=== PATIENT | male | born 1980 | race Caucasian/White ===

== ENCOUNTER 2016-09-07 12:35 | Inpatient (IN) | payer OTHER ==
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
[2016-09-07 18:20] VITALS: BMI 25.8
[2016-09-07] MEDS ORDERED: guaiFENesin/D-METHORPHAN HB 10 ML UNIT-DOSE CUPS PO PRN (18:24)
[2016-09-07] MEDS ORDERED: IBUPROFEN 400 MG TABLET (FP) PO PRN (18:24)
[2016-09-07] MEDS ORDERED: ACETAMINOPHEN 325 MG TABLET (FP) PO PRN (18:24)
[2016-09-07] MEDS ORDERED: MAGNESIUM HYDROX 2400MG/30ML ORAL SUSPENSION 30 ML CUP PO PRN (18:24)
[2016-09-07] MEDS ORDERED: MAG HYDROX/AL HYDROX/SIMETH 30 ML UNIT-DOSE CUP PO PRN (18:24)
[2016-09-07] MEDS ORDERED: MENTHOL/PHENOL 1 EACH UD MM PRN (18:24)
[2016-09-07] MEDS ORDERED: LOPERAMIDE HCL 2 MG CAPSULE PO PRN (18:24)
[2016-09-07] MEDS ORDERED: NICOTINE POLACRILEX 2 MG GUM BC PRN (18:24)
[2016-09-07] MEDS ORDERED: P-EPHED 60MG/TRIPROLIDI 2.5MG TABLET PO PRN (18:24)
[2016-09-07] MEDS ORDERED: chlordiazePOXIDE HCL 25 MG CAPSULE PO PRN (18:24)
[2016-09-07] MEDS ORDERED: MAGNESIUM CITRATE 300 ML BOTTLE PO PRN (18:24)
[2016-09-07] MEDS: chlordiazePOXIDE HCL 25 MG CAPSULE PO SCH (22:14)
[2016-09-07] MEDS: THIAMINE HCL 100 MG TABLET (FP) PO SCH (22:14)
[2016-09-07 23:18] LABS: URINE APPEARANCE CLEAR; URINE BILIRUBIN NEGATIVE (NEGATIVE); URINE BLOOD NEGATIVE (NEGATIVE); URINE COLOR YELLOW; URINE GLUCOSE (UA) NEGATIVE (NEGATIVE); URINE KETONE NEGATIVE (NEGATIVE); URINE LEUK ESTERASE NEGATIVE (NEGATIVE); URINE NITRITE NEGATIVE (NEGATIVE); URINE PROTEIN NEGATIVE (NEGATIVE); URINE UROBILINOGEN NEGATIVE E.U./dl (0.2-1.0)
[2016-09-08] MEDS: chlordiazePOXIDE HCL 25 MG CAPSULE PO SCH ×4 (06:15→22:12)
[2016-09-08 09:58] LABS: MCH 26.6 pg (25.7-33.7); MCHC 32.9 g/dl (32.0-35.9); MEAN CELL VOLUME 80.8 fl (80-96); MEAN PLT VOLUME 8.7 fl (7.5-11.1); PLATELET COUNT 243 K/MM3 (134-434); RDW 14.1 % (11.9-15.9); WHITE BLOOD COUNT 10.5 K/mm3 (4.0-10.0)
[2016-09-08] MEDS ORDERED: METHADONE HCL 40 MG DISPERSABLE TABLET PO SCH (10:00)
[2016-09-08] MEDS ORDERED: METHADONE HCL 10 MG TABLET ONE (10:06)
[2016-09-08] MEDS ORDERED: METHADONE HCL 40 MG DISPERSABLE TABLET ONE (10:06)
[2016-09-08] MEDS: METHADONE 80 MG, METHADONE 10 MG PO SCH (10:18)
[2016-09-08] MEDS: PRENATAL VITAMINS W/ FOLIC ACID TABLET (FP) PO SCH (10:18)
[2016-09-08] MEDS: NICOTINE 14 MG/24 HOURS TOPICAL PATCH TD SCH (10:19)
[2016-09-08 10:42] LABS: ALBUMIN 3.6 g/dl (3.4-5.0); ALK PHOS 88 U/L (45-117); ANION GAP 9 (8-16); BILIRUBIN,TOTAL 0.4 mg/dL (0.2-1.0); CALCIUM 8.2 mg/dL (8.5-10.1); CO2 27 mmol/L (21-32); CREATININE 0.9 mg/dL (0.7-1.3); GLUCOSE,RANDOM 75 mg/dL (74-106); SGOT/AST 25 U/L (15-37); SGPT/ALT 32 U/L (12-78); TOT PROT 7.2 g/dl (6.4-8.2)
[2016-09-08 10:44] LABS: HIV 1 & 2 AB NEGATIVE; HIV 1 AGp24 NEGATIVE
--- NOTE | 2016-09-08 11:38 | PN ---
[facility] CIWA - CIWA Score Nausea/Vomitin-Mild Nausea/No Vomiting Muscle Tremors: 4-Moderate,w/Arms Extend Anxiety: 3 Agitation: 0-Normal Activity Paroxysmal Sweats: 4-Forehead w/Sweat Beads Orientation: 2-Disoriented Date<2 days Tacttile Disturbances: 3-Moderate Itch/Numb/Burn Auditory Disturbances: 0-None Visual Disturbances: 2-Mild Sensitivity Headache: 0-None Present CIWA-Ar Total Score: 19 S Progress Note (SOAP) Subjective: Body Aches, Cold/Hot Sensations, Sweating. Objective: PT. A & O X 2 (DISORIENTED ABOUT DAY / DATE). 09/08/16 11:35 Vital Signs Temperature 97 F L 09/08/16 09:17 Pulse Rate 53 L 09/08/16 09:17 Respiratory Rate 18 09/08/16 09:17 Blood Pressure 105/55 09/08/16 09:17 O2 Sat by Pulse Oximetry (%) Laboratory Last Values WBC 10.5 K/mm3 (4.0-10.0) H 09/08/16 06:00 RBC 4.32 M/mm3 (4.00-5.60) 09/08/16 06:00 Hgb 11.5 GM/dL (11.7-16.9) L 09/08/16 06:00 Hct 34.9 % (35.4-49) L 09/08/16 06:00 MCV 80.8 fl (80-96) 09/08/16 06:00 MCHC 32.9 g/dl (32.0-35.9) 09/08/16 06:00 RDW 14.1 % (11.9-15.9) 09/08/16 06:00 Plt Count 243 K/MM3 (134-434) D 09/08/16 06:00 MPV 8.7 fl (7.5-11.1) 09/08/16 06:00 Sodium 140 mmol/L (136-145) 09/08/16 06:00 Potassium 3.8 mmol/L (3.5-5.1) 09/08/16 06:00 Chloride 104 mmol/L (98-107) 09/08/16 06:00 Carbon Dioxide 27 mmol/L (21-32) 09/08/16 06:00 Anion Gap 9 (8-16) 09/08/16 06:00 BUN 12 mg/dL (7-18) 09/08/16 06:00 Creatinine 0.9 mg/dL (0.7-1.3) 09/08/16 06:00 Creat Clearance w eGFR > 60 (>60) 09/08/16 06:00 Random Glucose 75 mg/dL (74-106) 09/08/16 06:00 Calcium 8.2 mg/dL (8.5-10.1) L 09/08/16 06:00 Total Bilirubin 0.4 mg/dL (0.2-1.0) D 09/08/16 06:00 AST 25 U/L (15-37) D 09/08/16 06:00 ALT 32 U/L (12-78) D 09/08/16 06:00 Alkaline Phosphatase 88 U/L (45-117) 09/08/16 06:00 Total Protein 7.2 g/dl (6.4-8.2) 09/08/16 06:00 Albumin 3.6 g/dl (3.4-5.0) 09/08/16 06:00 Urine Color Yellow 09/07/16 23:00 Urine Appearance Clear 09/07/16 23:00 Urine pH 5.0 (5.0-8.0) 09/07/16 23:00 Ur Specific [place] 1.025 (1.001-1.035) 09/07/16 23:00 Urine Protein Negative (NEGATIVE) 09/07/16 23:00 Urine Glucose (UA) Negative (NEGATIVE) 09/07/16 23:00 Urine Ketones Negative (NEGATIVE) 09/07/16 23:00 Urine Blood Negative (NEGATIVE) 09/07/16 23:00 Urine Nitrite Negative (NEGATIVE) 09/07/16 23:00 Urine Bilirubin Negative (NEGATIVE) 09/07/16 23:00 Urine Urobilinogen Negative E.U./dl (0.2-1.0) 09/07/16 23:00 Ur Leukocyte Esterase Negative (NEGATIVE) 09/07/16 23:00 RPR Titer Nonreactive (NONREACTIVE) 09/08/16 06:00 HIV 1&2 Antibody Screen Negative 09/07/16 06:00 HIV P24 Antigen Negative 09/07/16 06:00 LABS NOTED. Assessment: 09/08/16 11:37 WITHDRAWAL SYMPTOMS. Plan: CONTINUE DETOX. ADVISED PATIENT TO FOLLOW-UP WITH DIRECTOR CLINICAL PHARMACOLOGY / REHAB MEDICAL PROVIDER AFTER DISCHARGE FROM DETOX FOR GENERAL MEDICAL ASSESSMENT AND FOR ANY ABNORMAL ADMISSION LAB VALUES.
--- NOTE | 2016-09-08 16:28 | EKG ---
Test Reason : Blood Pressure : / mmHG Vent. Rate : 044 BPM Atrial Rate : 044 BPM P-R Int : 134 ms QRS Dur : 092 ms QT Int : 590 ms P-R-T Axes : 021 060 060 degrees QTc Int : 504 ms MARKED SINUS BRADYCARDIA CANNOT RULE OUT INFERIOR INFARCT , AGE UNDETERMINED PROLONGED QT ABNORMAL ECG NO PREVIOUS ECGS AVAILABLE Confirmed by ALLEN NOBLES, ADOLFO ([id number]) on 09/08/2016 4:28:30 PM Referred By: Dewayne Damon Confirmed By:ADOLFO VILLA MD
[2016-09-08] MEDS: THIAMINE HCL 100 MG TABLET (FP) PO SCH (22:12)
[2016-09-08] MEDS: diphenhydrAMINE HCL 50 MG CAPSULE PO PRN (22:12)
[2016-09-09] MEDS ORDERED: METHADONE HCL 10 MG TABLET ONE (02:38)
[2016-09-09] MEDS ORDERED: METHADONE HCL 40 MG DISPERSABLE TABLET ONE (02:39)
[2016-09-09] MEDS: METHADONE 80 MG, METHADONE 10 MG PO SCH (05:43)
[2016-09-09] MEDS: chlordiazePOXIDE HCL 25 MG CAPSULE PO SCH ×3 (05:43→18:08)
--- NOTE | 2016-09-09 09:24 | EKG ---
Test Reason : Blood Pressure : / mmHG Vent. Rate : 063 BPM Atrial Rate : 063 BPM P-R Int : 140 ms QRS Dur : 086 ms QT Int : 480 ms P-R-T Axes : 014 065 053 degrees QTc Int : 491 ms NORMAL SINUS RHYTHM WITH SINUS ARRHYTHMIA CANNOT RULE OUT INFERIOR INFARCT (CITED ON OR BEFORE 07-SEP-2016) NONSPECIFIC T WAVE ABNORMALITY WHEN COMPARED WITH ECG OF 07-SEP-2016 19:56, NO SIGNIFICANT CHANGE WAS FOUND Confirmed by SHAUNA HARRISON MD ([id number]) on 09/09/2016 9:24:06 AM Referred By: Dewayne Damon Confirmed By:SHAUNA HARRISON MD
[2016-09-09] MEDS: NICOTINE 14 MG/24 HOURS TOPICAL PATCH TD SCH (10:09)
[2016-09-09] MEDS: PRENATAL VITAMINS W/ FOLIC ACID TABLET (FP) PO SCH (10:09)
--- NOTE | 2016-09-09 11:18 | PN ---
S CIWA - CIWA Score Nausea/Vomitin-No Nausea/No Vomiting Muscle Tremors: 3 Anxiety: 3 Agitation: 4-Moderately Restless Paroxysmal Sweats: 3 Orientation: 0-Oriented Tacttile Disturbances: 0-None Auditory Disturbances: 0-None Visual Disturbances: 0-None Headache: 0-None Present CIWA-Ar Total Score: 13 BHS Progress Note (SOAP) Subjective: Sweating,interrupted sleep restless,tremors,anxiety Objective: 09/09/16 11:17 Vital Signs - 8 hr 09/09/16 09/09/16 09/09/16 03:30 07:00 10:46 Temperature 97.4 F L 97.7 F Pulse Rate 56 L 52 L Respiratory 18 18 18 Rate Blood Pressure 110/65 102/57 Laboratory Tests 09/07/16 09/07/16 09/08/16 06:00 23:00 06:00 WBC 10.5 H RBC 4.32 Hgb 11.5 L Hct 34.9 L MCV 80.8 MCHC 32.9 RDW 14.1 Plt Count 243 D MPV 8.7 Sodium Potassium Chloride Carbon Dioxide Anion Gap BUN Creatinine Creat Clearance w eGFR Random Glucose Calcium Total Bilirubin AST ALT Alkaline Phosphatase Total Protein Albumin Urine Color Yellow Urine Appearance Clear Urine pH 5.0 Ur Specific [place] 1.025 Urine Protein Negative Urine Glucose (UA) Negative Urine Ketones Negative Urine Blood Negative Urine Nitrite Negative Urine Bilirubin Negative Urine Urobilinogen Negative Ur Leukocyte Esterase Negative RPR Titer HIV 1&2 Antibody Screen Negative HIV P24 Antigen Negative 09/08/16 09/08/16 06:00 06:00 WBC RBC Hgb Hct MCV MCHC RDW Plt Count MPV Sodium 140 Potassium 3.8 Chloride 104 Carbon Dioxide 27 Anion Gap 9 BUN 12 Creatinine 0.9 Creat Clearance w eGFR > 60 Random Glucose 75 Calcium 8.2 L Total Bilirubin 0.4 D AST 25 D ALT 32 D Alkaline Phosphatase 88 Total Protein 7.2 Albumin 3.6 Urine Color Urine Appearance Urine pH Ur Specific [place] Urine Protein Urine Glucose (UA) Urine Ketones Urine Blood Urine Nitrite Urine Bilirubin Urine Urobilinogen Ur Leukocyte Esterase RPR Titer Nonreactive HIV 1&2 Antibody Screen HIV P24 Antigen labs noted Assessment: 09/09/16 11:18 Withdrawal sx. Plan: Continue detox
[2016-09-09] MEDS: diphenhydrAMINE HCL 50 MG CAPSULE PO PRN (22:28)
[2016-09-09] MEDS: THIAMINE HCL 100 MG TABLET (FP) PO SCH (22:28)
[2016-09-09] MEDS: chlordiazePOXIDE 5 MG CAPSULE PO SCH (22:29)
[2016-09-10] MEDS ORDERED: METHADONE HCL 10 MG TABLET ONE (04:07)
[2016-09-10] MEDS ORDERED: METHADONE HCL 40 MG DISPERSABLE TABLET ONE (04:07)
[2016-09-10] MEDS: METHADONE 80 MG, METHADONE 10 MG PO SCH (06:03)
[2016-09-10] MEDS: chlordiazePOXIDE 5 MG CAPSULE PO SCH ×3 (06:03→17:20)
[2016-09-10] MEDS: NICOTINE 14 MG/24 HOURS TOPICAL PATCH TD SCH (10:40)
[2016-09-10] MEDS: PRENATAL VITAMINS W/ FOLIC ACID TABLET (FP) PO SCH (10:40)
--- NOTE | 2016-09-10 14:56 | PN ---
BHS Progress Note (SOAP) Subjective: Sweating,interrupted sleep,restless Objective: 09/10/16 14:53 Vital Signs - 8 hr 09/10/16 09/10/16 09:42 14:05 Temperature 98.2 F 95.9 F L Pulse Rate 61 69 Respiratory 18 20 Rate Blood Pressure 114/68 119/65 Laboratory Last Values WBC 10.5 K/mm3 (4.0-10.0) H 09/08/16 06:00 RBC 4.32 M/mm3 (4.00-5.60) 09/08/16 06:00 Hgb 11.5 GM/dL (11.7-16.9) L 09/08/16 06:00 Hct 34.9 % (35.4-49) L 09/08/16 06:00 MCV 80.8 fl (80-96) 09/08/16 06:00 MCHC 32.9 g/dl (32.0-35.9) 09/08/16 06:00 RDW 14.1 % (11.9-15.9) 09/08/16 06:00 Plt Count 243 K/MM3 (134-434) D 09/08/16 06:00 MPV 8.7 fl (7.5-11.1) 09/08/16 06:00 Sodium 140 mmol/L (136-145) 09/08/16 06:00 Potassium 3.8 mmol/L (3.5-5.1) 09/08/16 06:00 Chloride 104 mmol/L (98-107) 09/08/16 06:00 Carbon Dioxide 27 mmol/L (21-32) 09/08/16 06:00 Anion Gap 9 (8-16) 09/08/16 06:00 BUN 12 mg/dL (7-18) 09/08/16 06:00 Creatinine 0.9 mg/dL (0.7-1.3) 09/08/16 06:00 Creat Clearance w eGFR > 60 (>60) 09/08/16 06:00 Random Glucose 75 mg/dL (74-106) 09/08/16 06:00 Calcium 8.2 mg/dL (8.5-10.1) L 09/08/16 06:00 Total Bilirubin 0.4 mg/dL (0.2-1.0) D 09/08/16 06:00 AST 25 U/L (15-37) D 09/08/16 06:00 ALT 32 U/L (12-78) D 09/08/16 06:00 Alkaline Phosphatase 88 U/L (45-117) 09/08/16 06:00 Total Protein 7.2 g/dl (6.4-8.2) 09/08/16 06:00 Albumin 3.6 g/dl (3.4-5.0) 09/08/16 06:00 Urine Color Yellow 09/07/16 23:00 Urine Appearance Clear 09/07/16 23:00 Urine pH 5.0 (5.0-8.0) 09/07/16 23:00 Ur Specific [place] 1.025 (1.001-1.035) 09/07/16 23:00 Urine Protein Negative (NEGATIVE) 09/07/16 23:00 Urine Glucose (UA) Negative (NEGATIVE) 09/07/16 23:00 Urine Ketones Negative (NEGATIVE) 09/07/16 23:00 Urine Blood Negative (NEGATIVE) 09/07/16 23:00 Urine Nitrite Negative (NEGATIVE) 09/07/16 23:00 Urine Bilirubin Negative (NEGATIVE) 09/07/16 23:00 Urine Urobilinogen Negative E.U./dl (0.2-1.0) 09/07/16 23:00 Ur Leukocyte Esterase Negative (NEGATIVE) 09/07/16 23:00 RPR Titer Nonreactive (NONREACTIVE) 09/08/16 06:00 HIV 1&2 Antibody Screen Negative 09/07/16 06:00 HIV P24 Antigen Negative 09/07/16 06:00 labs noted Assessment: 09/10/16 14:55 Withdrawal sx. Plan: Continue detox
[2016-09-10] MEDS: THIAMINE HCL 100 MG TABLET (FP) PO SCH (22:08)
[2016-09-10] MEDS: chlordiazePOXIDE HCL 10 MG CAPSULE PO SCH (22:08)
[2016-09-10] MEDS: diphenhydrAMINE HCL 50 MG CAPSULE PO PRN (22:08)
[2016-09-11] MEDS ORDERED: METHADONE HCL 10 MG TABLET ONE (01:46)
[2016-09-11] MEDS ORDERED: METHADONE HCL 40 MG DISPERSABLE TABLET ONE (01:46)
[2016-09-11] MEDS: chlordiazePOXIDE HCL 10 MG CAPSULE PO SCH ×2 (05:24→10:32)
[2016-09-11] MEDS: METHADONE 80 MG, METHADONE 10 MG PO SCH (05:24)
[2016-09-11 06:42] VITALS: BP 159/91; PULSE 70; TEMP 96.3
--- NOTE | 2016-09-11 10:15 | DS ---
[facility] Detox Discharge Summary Admission Date: 09/07/16 Discharge Date: 09/11/16 - History Present History: Alcohol Dependence, Cocaine Dependence, MMTP Pertinent Past History: Hep C - Physical Exam Results Vital Signs: Vital Signs Temperature 96.3 F L 09/11/16 06:42 Pulse Rate 70 09/11/16 06:42 Respiratory Rate 18 09/11/16 06:42 Blood Pressure 159/91 09/11/16 06:42 O2 Sat by Pulse Oximetry (%) Pertinent Admission Physical Exam Findings: Withdrawal sx. Laboratory Last Values WBC 10.5 K/mm3 (4.0-10.0) H 09/08/16 06:00 RBC 4.32 M/mm3 (4.00-5.60) 09/08/16 06:00 Hgb 11.5 GM/dL (11.7-16.9) L 09/08/16 06:00 Hct 34.9 % (35.4-49) L 09/08/16 06:00 MCV 80.8 fl (80-96) 09/08/16 06:00 MCHC 32.9 g/dl (32.0-35.9) 09/08/16 06:00 RDW 14.1 % (11.9-15.9) 09/08/16 06:00 Plt Count 243 K/MM3 (134-434) D 09/08/16 06:00 MPV 8.7 fl (7.5-11.1) 09/08/16 06:00 Sodium 140 mmol/L (136-145) 09/08/16 06:00 Potassium 3.8 mmol/L (3.5-5.1) 09/08/16 06:00 Chloride 104 mmol/L (98-107) 09/08/16 06:00 Carbon Dioxide 27 mmol/L (21-32) 09/08/16 06:00 Anion Gap 9 (8-16) 09/08/16 06:00 BUN 12 mg/dL (7-18) 09/08/16 06:00 Creatinine 0.9 mg/dL (0.7-1.3) 09/08/16 06:00 Creat Clearance w eGFR > 60 (>60) 09/08/16 06:00 Random Glucose 75 mg/dL (74-106) 09/08/16 06:00 Calcium 8.2 mg/dL (8.5-10.1) L 09/08/16 06:00 Total Bilirubin 0.4 mg/dL (0.2-1.0) D 09/08/16 06:00 AST 25 U/L (15-37) D 09/08/16 06:00 ALT 32 U/L (12-78) D 09/08/16 06:00 Alkaline Phosphatase 88 U/L (45-117) 09/08/16 06:00 Total Protein 7.2 g/dl (6.4-8.2) 09/08/16 06:00 Albumin 3.6 g/dl (3.4-5.0) 09/08/16 06:00 Urine Color Yellow 09/07/16 23:00 Urine Appearance Clear 09/07/16 23:00 Urine pH 5.0 (5.0-8.0) 09/07/16 23:00 Ur Specific [place] 1.025 (1.001-1.035) 09/07/16 23:00 Urine Protein Negative (NEGATIVE) 09/07/16 23:00 Urine Glucose (UA) Negative (NEGATIVE) 09/07/16 23:00 Urine Ketones Negative (NEGATIVE) 09/07/16 23:00 Urine Blood Negative (NEGATIVE) 09/07/16 23:00 Urine Nitrite Negative (NEGATIVE) 09/07/16 23:00 Urine Bilirubin Negative (NEGATIVE) 09/07/16 23:00 Urine Urobilinogen Negative E.U./dl (0.2-1.0) 09/07/16 23:00 Ur Leukocyte Esterase Negative (NEGATIVE) 09/07/16 23:00 RPR Titer Nonreactive (NONREACTIVE) 09/08/16 06:00 HIV 1&2 Antibody Screen Negative 09/07/16 06:00 HIV P24 Antigen Negative 09/07/16 06:00 labs noted - Treatment Hospital Course: Detox Protocol Followed, Detoxed Safely, Responded well, Discharged Condition Good, Rehab Referral Accepted Patient has Accepted a Rehab Referral to: [facility] - Medication Discharge Medications: Ambulatory Orders NK [No Known Home Medication] 01/22/15 - Diagnosis (1) Alcohol dependence with uncomplicated withdrawal Current Visit: Yes Status: Acute (2) Methadone maintenance therapy patient Current Visit: Yes Status: Acute (3) Nicotine dependence Current Visit: Yes Status: Acute Qualifiers: Nicotine product type: cigarettes Substance use status: in withdrawal Qualified Code(s): F17.213 - Nicotine dependence, cigarettes, with withdrawal (4) Cocaine dependence, uncomplicated Current Visit: Yes Status: Chronic - AMA Did Patient Leave Against Medical Advice: No
[2016-09-11] MEDS: PRENATAL VITAMINS W/ FOLIC ACID TABLET (FP) PO SCH (10:31)
[2016-09-11] MEDS: NICOTINE 14 MG/24 HOURS TOPICAL PATCH TD SCH (10:31)
== END 2016-09-11 10:48 | disposition home or self-care (01) | DRG 773 ==
LOC: YASAS 12:35 → Y3N 18:17
PROVIDERS: ADMIT Internal Medicine; ATTEND Internal Medicine
PROC: HZ2ZZZZ Detoxification Services for Substance Abuse Treatment (ICD-10-PCS; principal; 2016-09-11)
DX: F11.20 Opioid dependence, uncomplicated (principal); F10.230 Alcohol dependence with withdrawal, uncomplicated; F14.20 Cocaine dependence, uncomplicated; F17.213 Nicotine dependence, cigarettes, with withdrawal
CPT/HCPCS: 36415; 80053; 81003; 85027; 86593; 87389; 93005; 93010